=== PATIENT | female | born 1940 | race Caucasian/White ===

== ENCOUNTER 2022-12-31 19:51 | Inpatient (IN) | payer MEDICARE, OTHER, SELFPAY ==
[2022-12-31 21:26] VITALS: PULSE 85; RESP 16; O2SAT 92
[2022-12-31 22:00] VITALS: BP 102/51; PULSE 85; RESP 16; TEMP 37.6; O2SAT 92
--- NOTE | 2022-12-31 22:46 | HP.PCM_ITS ---
HPI - General General Date of Admission: 12/31/22 Date of Service: 01/01/23 Chief Complaint: Here for rehabilitation. HPI Narrative 12/28/2022 BENITEZ REAVES, is a 82 Female who presents with followin12/28/2022 Admit to [facility]. Diarrhea, fall. CT abdomen/pelvis showed right hip fracture, cecal mass, small bowel obstruction, ?Liver metastasis. Abdominal ultrasound showed liver metastasis x 3. 12/29/2022 CT chest negative for metastasis. Orthopedics performed right hip hemiarthroplasty, weight bearing as tolerated, Lovenox DT prophylaxis. GI recommended liver biopsy. 12/30/2022 Liver biopsy done. 12/31/2022 Tolerating diet, passing evan. Needs Gastroenterology, Oncology, General Surgery follow up. 12/31/2022 Admit to TCU with debility, here for rehabilitation, strengthening, prior to discharge home alone. [facility] Medical History (Updated 12/31/22 @ 23:[address] Jesse Mcclellan MD) Cecum mass Closed right hip fracture COPD (chronic obstructive pulmonary disease) Debility Depression GERD (gastroesophageal reflux disease) History of extrapyramidal symptoms Hyperlipidemia Iron deficiency anemia Metastasis to liver Schizophrenia Shoulder pain with history of repair of rotator cuff Small bowel obstruction Home Medications Fleet Enema 133 ml OTHER DAILY PRN Constipation 12/31/22 [History Last Taken Unknown] Percocet 1 tablet PO/SL Q4H PRN PRN Pain 12/31/22 [History Last Taken Unknown] Senna Plus 2 tablet PO/SL QHS Constipation 12/31/22 [History Last Taken Unknown] acetaminophen 2 tablet PO/SL 3XD PRN Pain 12/31/22 [History Last Taken 12/31/22 11:00] albuterol 1 puff PO/SL Q4H PRN PRN Shortness Of Breath 12/31/22 [History Last Taken Unknown] atorvastatin 40 mg tablet 40 mg PO QHS Cholesterol 12/31/22 [History Last Taken Unknown] benztropine 1 tablet PO/SL DAILY Check with primary doctor 12/31/22 [History L ast Taken Unknown] bisacodyl 1 supp OTHER DAILY PRN Constipation 12/31/22 [History Last Taken Unknown] budesonide-formoterol 2 puff PO/SL BID Check with primary doctor 12/31/22 [History Last Taken Unknown] calcium carbonate 1 tablet PO/SL BIDCM Check with primary doctor 12/31/22 [History Last Taken Unknown] cholecalciferol (vitamin D3) 2,000 iu PO/SL DAILY Supplement 12/31/22 [History Last Taken Unknown] denosumab 1 ml OTHER QMONTH Check with primary doctor 12/31/22 [History Last Taken Unknown] enoxaparin 0.4 ml OTHER DAILY Anticoagulant 12/31/22 [History Last Taken Unknown] famotidine 20 mg tablet 20 mg PO DAILY Check with primary doctor 12/31/22 [History Last Taken Unknown] ferrous sulfate 1 tablet PO/SL QMWF Supplement 12/31/22 [History Last Taken Unknown] metoprolol succinate 0.5 tablet PO/SL DAILY Blood pressure 12/31/22 [History Last Taken Unknown] polyethylene glycol 3350 1 packet PO/SL DAILY Constipation 12/31/22 [History Last Taken Unknown] ziprasidone HCl 1 cap PO/SL BREAKFAST Check with primary doctor 12/31/22 [History Last Taken Unknown] ziprasidone HCl 1 cap PO/SL DINNER Check with primary doctor 12/31/22 [History Last Taken Unknown] Allergy/AdvReac Type Severity Reaction Status Date / Time Sulfa (Sulfonamide Allergy Other Verified 12/31/22 22:19 Antibiotics) [sulfa drugs] tetanus toxoid, adsorbed Allergy Other Verified 12/31/22 22:20 Family History (Updated 12/31/22 @ 22:[address] Jesse Mcclellan MD) Mother Breast cancer Diabetes Heart disease Sister Diabetes Uterine cancer Brother Bone cancer Prostate cancer Father Colon cancer Surgical History (Updated 12/31/22 @ 22:[address] Jesse Mcclellan MD) History of bilateral breast reduction surgery History of breast biopsy History of cholecystectomy Social History (Updated 12/31/22 @ 22:[address] Jesse Mcclellan MD) household members: none current occupational status: retired Smoking Status: Never smoker alcohol intake: never substance use type: does not use ROS Constitutional Constitutional: Denies chills, fever(s) or weight gain ENT HEENT: Denies headache(s), nasal congestion or nasal discharge Cardiovascular Cardiovascular: Denies chest pain or palpitations Respiratory/Chest Respiratory/Chest: Denies cough, excessive phlegm production or shortness of breath with exertion Gastrointestinal Gastrointestinal: Denies abdominal pain, nausea or vomiting Genitourinary Genitourinary: Denies dysuria Musculoskeletal Musculoskeletal: Denies joint pain or joint swelling Integumentary Integumentary: Denies rash or wounds Neurologic Neurologic: Denies focal weakness, numbness or tingling Psychiatric Psychiatric: Denies anxiety, auditory hallucinations, depression, homicidal ideation or suicidal ideation Physical Exam Const alert General Appearance: cooperative HEENT normocephalic Eyes PERRL and EOMs intact bilaterally Neck supple, no JVD and no carotid bruits Resp normal respiratory effort, normal air movement and clear to auscultation bilaterally Cardio regular rate and regular rhythm GI normal to inspection, nondistended, normoactive bowel sounds, non-tender and non-distended Extremity normal capillary refill General Extremity: Negative for edema Skin no rashes or lesions noted General Skin Exam: no breakdown Psych affect normal Appearance: appropriate Results Lab / Micro Data Result Diagrams: 01/01/23 05:16 01/01/23 05:16 Assessment & Plan Assessment/Plan (1) Debility: (2) Closed right hip fracture: (3) Cecum mass: (4) Small bowel obstruction: (5) Metastasis to liver: (6) Schizophrenia: (7) Hyperlipidemia: (8) History of extrapyramidal symptoms: (9) GERD (gastroesophageal reflux disease): (10) Depression: (11) Iron deficiency anemia: (12) COPD (chronic obstructive pulmonary disease): PLAN: Plan 82 year old female with below past medical history hospitalized for right hip fracture, underwent right hip hemiarthroplasty 12/29/2022, complicated by cecal mass, liver mets, small bowel obstruction, admitted to TCU with debility, here for rehabilitation, strengthening, prior to discharge home alone. * Debility - PT/OT. * Pain - Tylenol 1000mg q8, Tramadol 50mg q6h prn pain (1-5), Oxycodone 5mg q4h prn pain (6-10). * Bowel - Miralax 17gm daily, senna/colace 2 tablets bid, Dulcolax 10mg pr x 1 prn, MOM 30ml po x 1 prn. * Adult immunization - Admnister pneumonia vaccine, covid19 vaccine, flu vaccine as appropriate. * DVT prophylaxis - Lovenox 40mg sc daily. * COPD - Fluticasone/Salmeterol 1 puff bid, Albuterol 1 puff q4h prn. * Hyperlipidemia - Atorvastatin 40mg qhs. * Extrapyramidal symptoms - Benztropine 1mg daily. * GERD - Famotidine 20mg daily, TUMS 500mg bidcm. * Iron deficiency anemia - Ferrous sulfate 325mg MWF, Hemoglobin 7.4, type and cross 2 units PRBC, Lasix 20mg iv between units H&H post transfusion. * Hypertension - Metoprolol succinate 12.5mg daily. * Vitamin D deficiency - D3 50mcg daily. * Paranoid schizophrenia - Geodon 40mg am, 80mg pm. * Hypokalemia - K 3.4, replace, monitorl
[2023-01-01 00:25] VITALS: BMI 20.2
[2023-01-01 04:17] VITALS: BP 119/54; PULSE 80
[2023-01-01] MEDS: Metoprolol(XL)Succ 25 MG Tablet 12.5 MG PO (04:17)
[2023-01-01] MEDS: Benztropine 2 MG Tablet PO (04:17)
[2023-01-01] MEDS: Senna/Docusate Sodium 1 Tablet 2 TABLET PO ×2 (04:17→18:39)
[2023-01-01] MEDS: Famotidine 20 MG Tablet PO (04:17)
[2023-01-01] MEDS: Cholecalciferol (VIT D3) 25 MCG TABLET (1,000 UNITS) 50 MCG PO (04:17)
[2023-01-01] MEDS: Fluticasone/Salmeterol 232-14 Inhaler 1 PUFF INHALATION ×2 (04:18→18:41)
[2023-01-01] MEDS: Acetaminophen 500 MG Tablet 1000 MG PO ×3 (04:19→20:26)
[2023-01-01] MEDS: Polyethylene Glycol 3350 17 GM PACKET PO (04:20)
[2023-01-01 05:54] LABS: Absolute Lymphocyte Count 1.87 X10^3/uL (0.83-4.51); Absolute Neutrophil Count 5.6 X10^3/uL (2.0-7.7); Basophil# 0.05 X10^3/uL; Basophil% 0.6 % (0-1); Eosinophil# 0.05 X10^3/uL; Eosinophils% 0.6 % (0-5); Hematocrit 24.3 % (37-47); Hemoglobin 7.4 g/dL (12.0-15.0); Lymphocyte # 1.87 X10^3/ul (0.83-4.51); Lymphocyte % 21.5 % (19-41); Mean Corp Hgb Conc 30.5 g/dL (32-36); Mean Corpuscular Hgb 26.9 pg (27.0-32.0); Mean Corpuscular Volume 88.4 fL (81-99); Mean Platelet Vol. 9.3 fl (6.2-12.0); Monocyte# 1.03 X10^3/uL; Monocyte% 11.8 % (0-10); NRBC Flagged by Analyzer 0 % (0-5); Neutrophil # 5.62 X10^3/uL (2.7-7.7); Neutrophil % 64.6 % (47-70); Platelet Count 238 K/mm3 (150-450); RBC Distribution Width CV 19.1 % (11.6-14.6); RBC Distribution Width SD 61.2 fl (35.1-43.9); Red Blood Count 2.75 M/mm3 (4.2-5.4); White Blood Count 8.7 K/mm3 (4.4-11.0)
[2023-01-01 06:33] LABS: Anion Gap 6 (5-15); BUN 12 mg/dL (7-18); BUN/Creat Ratio 22.7 RATIO (10-20); Calcium,Total 8.8 mg/dL (8.5-10.1); Chloride 107 mmol/L (98-107); Creatinine, Serum 0.53 mg/dL (0.55-1.02); EST Glomerular Filtration Rate 118 mL/min (>60); Est Glom Filt Rate - Afr Amer 143 mL/min (>60); Glucose 98 mg/dL (74-106); Potassium 3.4 mmol/L (3.5-5.1); Sodium Level 141 mmol/L (136-145)
[2023-01-01] MEDS: Ziprasidone HCl 20 MG Capsule 40 MG PO (08:34)
[2023-01-01] MEDS: Calcium Carbonate 500 MG Tablet PO ×2 (08:34→18:40)
[2023-01-01] MEDS: Potassium Chloride Oral Tablet 20 MEQ PO (08:34)
[2023-01-01] MEDS: Magnesium Hydroxide 30 ML UDC PO (08:38)
--- NOTE | 2023-01-01 10:00 | NURSING ---
Aquatics Specialist Note; Activity Asset: Evie Rowe is independent in her choice of daily activities. She prefers to be called Breana. Breana will watch tv, read and look at the newspaper and magazines along with working on word puzzles. She has a sister that lives out of state and is coming in to visit. 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
--- NOTE | 2023-01-01 10:11 | NURSING ---
CALLED PT SISTER TO UPDATE HER ON PT. NO ANSWER,LEFT MESSAGE.
[2023-01-01] MEDS: Enoxaparin 40 MG/0.4 ML Syringe SC (10:15)
[2023-01-01] MEDS: Tuberculin,Purif.prot.deriv. 50 TU/ML Vial 0.1 ML ID (10:21)
[2023-01-01] MEDS: Ferrous Sulfate 325 MG Tablet PO (12:11)
--- NOTE | 2023-01-01 12:13 | NURSING ---
PT SIGNED CONSENT TO RECEIVE BLOOD. THIS NURSE DID TEACHING AND EXPLAINED REASON FOR BLOOD. PT STATED SHE UNDER STOOD.
[2023-01-01] MEDS: Bisacodyl 10 MG Suppository RC (13:14)
--- NOTE | 2023-01-01 13:19 | NURSING ---
Addendum entered by Faisal Arguello 01/01/23 20:21: POSITIVE RESULTS Original Note: MOM AND SUPPOSITORY GIVEN DUE TO PT UNKNOWN LAST BM AND ABDOMINAL DISTENDED.
--- NOTE | 2023-01-01 13:25 | CASEMGMT ---
Social Work Met with patient to complete initial assessment. Introduced self and role. Discussed code status and MOLST form. Pt confirms full code. MOLST placed in Dr folder. Pt agreed to ask sister to provide copies of advanced directives. Educated to Medicare benefit and $200/day copay as pt does not have secondary insurance listed. Day 21, beginning of copays, is 01/20. Pt's goal is to return home alone, however, pt lives in a tri-level and needs to be safe completing the flight of steps. Pt noted she does not want to go to a custodial. SW offered to assist with DC planning. Will continue to follow. KAYLEEN WhiteW
--- NOTE | 2023-01-01 14:24 | PCM.PN.DRR ---
TCU RX Drug Regimen Review Subjective: TCU Admission. 82 YOF who was hospitalized for right hip fracture and underwent right hip hemiarthroplasty 12/29/2022, complicated by cecal mass, liver mets, and small bowel obstruction. Admitted to TCU 12/31/22 with debility for rehab, and strengthening. Objective: Allergies Sulfa (Sulfonamide Antibiotics) [sulfa drugs] Allergy (Verified 12/31/22 22:19) Other tetanus toxoid, adsorbed Allergy (Verified 12/31/22 22:20) Other Current Medications Generic Name Dose Route Start Last Admin Trade Name Freq PRN Reason Stop Dose Admin Acetaminophen 1,000 mg 01/01/23 06:00 01/01/23 13:15 Acetaminophen 500 Mg Tablet PO 1,000 mg Q8 PHILIPPE Administration Albuterol Sulfate 1 puff 12/31/22 22:12 Albuterol Ih (6.7 Gm) 1 Puff Inhaler INHALATION Q4H PRN PRN Shortness Of Breath Atorvastatin Calcium 40 mg 01/01/23 22:00 Atorvastatin Calcium 40 Mg Tablet PO QHS [facility] Benztropine Mesylate 2 mg 01/01/23 06:00 01/01/23 04:17 Benztropine 2 Mg Tablet PO 2 mg DAILY PHILIPPE Administration Bisacodyl 10 mg 12/31/22 22:12 01/01/23 13:14 Bisacodyl 10 Mg Suppository RC 10 mg DAILY PRN Administration Constipation Calcium Carbonate 500 mg 01/01/23 08:00 01/01/23 08:34 Calcium Carbonate 500 Mg Tablet PO 500 mg BIDCM PHILIPPE Administration Cholecalciferol 50 mcg 01/01/23 06:00 01/01/23 04:17 Cholecalciferol (Vit D3) 25 Mcg Tablet (1,000 Units) PO 50 mcg DAILY PHILIPPE Administration Enoxaparin Sodium 40 mg 01/01/23 10:00 01/01/23 10:15 Enoxaparin 40 Mg/0.4 Ml Syringe SC 40 mg DAILY@0600 [facility] Administration Famotidine 20 mg 01/01/23 06:00 01/01/23 04:17 Famotidine 20 Mg Tablet PO 20 mg DAILY PHILIPPE Administration Ferrous Sulfate 325 mg 01/01/23 12:00 01/01/23 12:11 Ferrous Sulfate 325 Mg Tablet PO 325 mg MoWeFr@1200 [facility] Administration Magnesium Hydroxide 30 ml 12/31/22 23:06 01/01/23 08:38 Magnesium Hydroxide 30 Ml Udc PO 30 ml X1 PRN Administration Constipation Metoprolol Succinate 12.5 mg 01/01/23 06:00 01/01/23 04:17 Metoprolol(Xl)Succ 25 Mg Tablet PO 12.5 mg DAILY PHILIPPE Administration Oxycodone HCl 5 mg 12/31/22 23:08 Oxycodone 5 Mg Tablet PO Q4H PRN PRN Pain Score 6-10 Polyethylene Glycol 17 gm 01/01/23 06:00 01/01/23 04:20 Polyethylene Glycol 3350 17 Gm Packet PO 17 gm DAILY PHILIPPE Administration Potassium Chloride 10 meq 01/02/23 08:00 Potassium Chloride Oral Tablet 10 Meq PO DAILY PHILIPPE Fluticasone/Salmeterol 1 puff 01/01/23 06:00 01/01/23 04:18 Fluticasone/Salmeterol 232-14 Inhaler INHALATION 1 puff BID PHILIPPE Administration Senna/Docusate Sodium 2 tablet 01/01/23 06:00 01/01/23 04:17 Senna/Docusate Sodium 1 Tablet PO 2 tablet BID [facility] Administration Tramadol HCl 50 mg 12/31/22 23:06 Tramadol 50 Mg Tablet PO Q6H PRN PRN Pain Score 1-5 Tuberculin PPD 0.1 ml 01/08/23 10:00 Tuberculin,Purif.Prot.Deriv. 50 Tu/Ml Vial ID 01/08/23 10:01 X1 ONE Ziprasidone 40 mg 01/01/23 08:00 01/01/23 08:34 Ziprasidone Hcl 20 Mg Capsule PO 40 mg BREAKFAST PHILIPPE Administration Ziprasidone 80 mg 01/01/23 17:00 Ziprasidone Hcl 20 Mg Capsule PO DINNER [facility] Problem List (Last Updated 12/31/22 @ 23:[address] Jesse Mcclellan MD) COPD (chronic obstructive pulmonary disease) (Chronic) Iron deficiency anemia (Acute) Depression (Acute) GERD (gastroesophageal reflux disease) (Acute) History of extrapyramidal symptoms (Acute) Hyperlipidemia (Acute) Schizophrenia (Acute) Metastasis to liver (Acute) Small bowel obstruction (Acute) Cecum mass (Acute) Closed right hip fracture (Acute) Debility (Acute) Vital Signs Temp Pulse Resp BP Pulse Ox O2 Del Method 99.6 F H 80 16 119/54 L 92 Room Air 12/31/22 22:00 01/01/23 04:17 12/31/22 22:00 01/01/23 04:17 12/31/22 22:00 12/31/22 22:00 Oxygen Delivery Method Room Air Weight: 53.524 kg Body Mass Index (BMI) 20.2 Sodium 141 mmol/L (136-145) 01/01/23 05:16 Potassium 3.4 mmol/L (3.5-5.1) L 01/01/23 05:16 Chloride 107 mmol/L (98-107) 01/01/23 05:16 Carbon Dioxide 28.0 mmol/L (21.0-32.0) 01/01/23 05:16 Anion Gap 6 (5-15) 01/01/23 05:16 BUN 12 mg/dL (7-18) 01/01/23 05:16 Creatinine 0.53 mg/dL (0.55-1.02) L 01/01/23 05:16 Est GFR (MDRD) Af Amer 143 mL/min (>60) 01/01/23 05:16 Est GFR (MDRD) Non-Af 118 mL/min (>60) 01/01/23 05:16 BUN/Creatinine Ratio 22.7 RATIO (10-20) H 01/01/23 05:16 Glucose 98 mg/dL (74-106) 01/01/23 05:16 Assessment/Plan: 1. Pain: acetaminophen 1000mg PO Q8, tramadol 50mg PO Q6H PRN pain (1-5) and oxycodone 5mg PO Q4H PRN pain (6-10). Monitor pain levels, constipation, any PRN medication use. To date, pt has not used prn medications. 2. Bowel: Miralax 17gm PO daily, senna/colace 2 tablets PO bid, Dulcolax 10mg RC x 1 PRN constipation, MOM 30ml PO x 1 PRN constipation. Monitor increased or decreased constipation or diarrhea, prn medication use To date, pt has not used prn medication and does not have any documented I/O 3. COPD: fluticasone/salmeterol 1 puff inhalation bid, Albuterol 1 puff inhalation Q4H PRN SOB. Monitor inhaler technique, thrush, wheezing, sob, prn medication use/need. To date, pt has not used PRN medication. Please rinse mouth with water and spit following administration of AirDuo to prevent thrush. 4. Hyperlipidemia: atorvastatin 40mg PO QHS. Please consider order a lipid panel and LFTs as they are not on file. Thanks. Please continue to monitor for muscle aches. 5. GERD: famotidine 20mg PO daily, Tums 500mg PO BID. Monitor acid reflux, stomach upset, nausea and calcium (last 8.8mg/dL). 6. Hypertension: metoprolol succinate 12.5mg PO daily. Monitor BP (last 119/54), HR (last 80), dizziness, orthostasis. 7. Iron deficiency anemia/hypokalemia/vitamin D deficiency: ferrous sulfate 325mg PO MWF, cholecalciferol 50mcg PO daily, Potassium Chloride 10mEq PO daily. Please consider ordering a vitamin D level as there is no level in the chart. Thanks. Please continue to monitor for constipation, dark stools and potassium (last 3.4mmol/L). 8. DVT prophylaxis: enoxaparin 40mg SC daily. Monitor bleeding, bruising, fall risk, platelets (last 238,000), renal function, and hemoglobin (last 7.4g/dL). 9. Extrapyramidal symptoms: benztropine 2mg PO daily. Monitor for any EPS, drowsiness, dizziness, dementia/delirium (BEERs medication), anticholinergic side effects (BEERs medication). Assessment/Plan for indications treated with psychotropic medications: 1. Paranoid schizophrenia: ziprasidone 40mg PO am, 80mg PO pm. Monitor: EPS (on benztropine), DRESS, weight gain, dementia/delirium (BEERs medication), falls/fractures (BEERs medication), sodium (last 141mmol/L). Please consider GDR by 06/2023 if clinically appropriate. Thanks. Medical chart and medication regimen reviewed. The following medication irregularities or issues were identified: *1. Atorvastatin 40mg PO QHS. Please consider order a lipid panel and LFTs as they are not on file. Thanks. *2. Please consider ordering a vitamin D level as there is no level in the chart. Thanks. Please continue to monitor for constipation, dark stools and potassium (last 3.4mmol/L). *3. Ziprasidone 40mg PO am, 80mg PO pm. Please consider GDR by 06/2023 if clinically appropriate. Thanks. Date of Note:: 01/01/23
[2023-01-01 16:00] VITALS: BP 106/44; PULSE 82; RESP 14; TEMP 37.3; O2SAT 96
--- NOTE | 2023-01-01 17:13 | NURSING ---
Addendum entered by Faisal Arguello 01/01/23 19:38: PT WILL GET A MIDLINE Addendum entered by Faisal Arguello 01/01/23 18:21: PT COMING BACK TO FLOOR AT 1830 DUE TO STAFF NOT BEING ABLE TO START IV ON PT. CALLED,N.O. RN CALLED FOR TRAINING ASSOCIATE FOR A PICC LINE. Original Note: PT TRANSFERRED TO PCU BY WHEEL CHAIR FOR 2 UNITS OF BLOOD DUE TO LOW HGB AT 1535.
[2023-01-01] MEDS: Ziprasidone HCl 20 MG Capsule 80 MG PO (18:40)
[2023-01-01 19:30] VITALS: O2SAT 94
[2023-01-01] MEDS: Atorvastatin Calcium 40 MG Tablet PO (20:27)
[2023-01-02] MEDS: Cholecalciferol (VIT D3) 25 MCG TABLET (1,000 UNITS) 50 MCG PO (05:44)
[2023-01-02] MEDS: Enoxaparin 40 MG/0.4 ML Syringe SC (05:44)
[2023-01-02] MEDS: Fluticasone/Salmeterol 232-14 Inhaler 1 PUFF INHALATION ×2 (05:44→20:30)
[2023-01-02] MEDS: Acetaminophen 500 MG Tablet 1000 MG PO ×2 (05:44→20:32)
[2023-01-02 05:45] VITALS: BP 128/73; PULSE 87
[2023-01-02] MEDS: Famotidine 20 MG Tablet PO (05:45)
[2023-01-02] MEDS: Senna/Docusate Sodium 1 Tablet 2 TABLET PO ×2 (05:45→20:31)
[2023-01-02] MEDS: Benztropine 2 MG Tablet PO (05:45)
[2023-01-02] MEDS: Metoprolol(XL)Succ 25 MG Tablet 12.5 MG PO (05:45)
[2023-01-02] MEDS: Polyethylene Glycol 3350 17 GM PACKET PO (05:50)
[2023-01-02] MEDS: Ziprasidone HCl 20 MG Capsule 40 MG PO (08:20)
[2023-01-02] MEDS: Calcium Carbonate 500 MG Tablet PO ×2 (08:21→20:32)
[2023-01-02] MEDS: Potassium Chloride Oral Tablet 10 MEQ PO (12:34)
--- NOTE | 2023-01-02 20:25 | NURSING ---
Patient returned to floor by pcu SCALEMAN. Patient positioned comfortably in bed. no signs of discomfort, patient expressed gratitude for comfort items
[2023-01-02] MEDS: Atorvastatin Calcium 40 MG Tablet PO (20:33)
[2023-01-02] MEDS: Ziprasidone HCl 20 MG Capsule 80 MG PO (20:33)
[2023-01-02 21:24] VITALS: BP 137/85; PULSE 75; RESP 18; TEMP 36.9; O2SAT 94
[2023-01-03 05:23] VITALS: BP 131/80; PULSE 85
[2023-01-03] MEDS: Enoxaparin 40 MG/0.4 ML Syringe SC (05:23)
[2023-01-03] MEDS: Acetaminophen 500 MG Tablet 1000 MG PO ×2 (05:23→13:27)
[2023-01-03] MEDS: Metoprolol(XL)Succ 25 MG Tablet 12.5 MG PO (05:23)
[2023-01-03] MEDS: Benztropine 2 MG Tablet PO (05:23)
[2023-01-03] MEDS: Famotidine 20 MG Tablet PO (05:24)
[2023-01-03] MEDS: Polyethylene Glycol 3350 17 GM PACKET PO (05:24)
[2023-01-03] MEDS: Cholecalciferol (VIT D3) 25 MCG TABLET (1,000 UNITS) 50 MCG PO (05:24)
[2023-01-03] MEDS: Senna/Docusate Sodium 1 Tablet 2 TABLET PO (05:24)
[2023-01-03 06:30] LABS: Anion Gap 5 (5-15); BUN 14 mg/dL (7-18); Calcium,Total 8.7 mg/dL (8.5-10.1); Chloride 106 mmol/L (98-107); Creatinine, Serum 0.48 mg/dL (0.55-1.02); EST Glomerular Filtration Rate 131 mL/min (>60); Est Glom Filt Rate - Afr Amer 159 mL/min (>60); Estimated Creatinine Clearance 37.28 ml/min; Glucose 105 mg/dL (74-106); Potassium 3.8 mmol/L (3.5-5.1); Sodium Level 139 mmol/L (136-145)
[2023-01-03] MEDS: Fluticasone/Salmeterol 232-14 Inhaler 1 PUFF INHALATION ×2 (06:41→17:10)
[2023-01-03] MEDS: Potassium Chloride Oral Tablet 10 MEQ PO (08:03)
[2023-01-03] MEDS: Calcium Carbonate 500 MG Tablet PO ×2 (08:03→17:11)
[2023-01-03] MEDS: Ziprasidone HCl 20 MG Capsule 40 MG PO (08:03)
[2023-01-03 14:08] VITALS: BP 122/84; PULSE 91; RESP 16; TEMP 35.4; O2SAT 94
[2023-01-03 15:42] LABS: Hematocrit 34.2 % (37-47); Hemoglobin 10.8 g/dL (12.0-15.0)
--- NOTE | 2023-01-03 15:47 | NURSING ---
Pt with 2 episodes nausea. d/c tylenol as pt blames for nausea. verbal order from Dr Mcclellan for prn zofran but dangerous interaction with scarlett
[2023-01-03] MEDS: Ziprasidone HCl 20 MG Capsule 80 MG PO (17:09)
[2023-01-03] MEDS: Atorvastatin Calcium 40 MG Tablet PO (19:51)
[2023-01-03 20:05] VITALS: PULSE 92; RESP 16; O2SAT 94
--- NOTE | 2023-01-03 20:17 | NURSING ---
Pt requested medication at this time to get in bed
[2023-01-04] MEDS: Fluticasone/Salmeterol 232-14 Inhaler 1 PUFF INHALATION ×2 (05:42→17:26)
[2023-01-04] MEDS: Senna/Docusate Sodium 1 Tablet 2 TABLET PO ×2 (05:43→17:26)
[2023-01-04] MEDS: Famotidine 20 MG Tablet PO (05:44)
[2023-01-04] MEDS: Enoxaparin 40 MG/0.4 ML Syringe SC (05:44)
[2023-01-04] MEDS: Benztropine 2 MG Tablet PO (05:44)
[2023-01-04] MEDS: Cholecalciferol (VIT D3) 25 MCG TABLET (1,000 UNITS) 50 MCG PO (05:44)
[2023-01-04 05:51] VITALS: BP 139/63; PULSE 106
[2023-01-04] MEDS: Metoprolol(XL)Succ 25 MG Tablet 12.5 MG PO (05:51)
[2023-01-04] MEDS: Calcium Carbonate 500 MG Tablet PO ×2 (08:00→17:27)
[2023-01-04] MEDS: Potassium Chloride Oral Tablet 10 MEQ PO (08:01)
[2023-01-04] MEDS: Ziprasidone HCl 20 MG Capsule 40 MG PO (09:27)
--- NOTE | 2023-01-04 10:42 | NURSING ---
LABS FAXED TO . APPOINTMENTS MADE WITH AND . MESSAGE LEFT WITH OFFICE TO SCHEDULE APPOINTMENT. RN AWARE
--- NOTE | 2023-01-04 10:44 | NURSING ---
CALLED DR. ARREDONDO OFFICE AND IMMUNIZATIONS UPDATED ON WORK LIST.
[2023-01-04] MEDS: Ferrous Sulfate 325 MG Tablet PO (11:34)
[2023-01-04] MEDS: proMETHazine 25 MG Tablet PO (12:48)
--- NOTE | 2023-01-04 12:50 | NURSING ---
Call gamez ringing but when answered patient didn't say anything. Went in room to check on her and she had thrown up about 350cc fluid. Offered kiah rose and nausea medicine, she said she'd take both. Kiah rose provided and phenergan given.
[2023-01-04 13:05] VITALS: PULSE 107; RESP 16; O2SAT 92
[2023-01-04] MEDS: 0.9% Saline Lock 10 ML Syringe IV (13:07)
--- NOTE | 2023-01-04 14:18 | NURSING ---
Offered covid vaccine, patient wasn't sure if she'd had it or not and asked that RN reach out to Lydia. Called Lydia, she reports she thinks patient is up to date but she will bring her vaccine card in when she can.
[2023-01-04 14:20] VITALS: BP 161/94; PULSE 110; RESP 16; TEMP 36.5; O2SAT 95
--- NOTE | 2023-01-04 16:41 | CHAPLAIN ---
Type of Pastoral Visit _x__ Initial Visit ___ Follow-up Visit ___ On-call Visit ___ General Patient Visit ___ Spiritual Assessment ___ Family Conference ___ Bereavement ___ Rapid Response ___ Code Blue ___ Other (describe below) Pastoral Care Referral From _x__ Patient ___ Family ___ Nurse ___ Physician ___ Sleever ___ Buckle Coverer ___ Other (describe below) Sacrament/Intervention _x__ Active listening ___ Anointing ___ Pentecostal ___ Bereavement ___ Communion _x__ Ivy exploration ___ _x__ Life review _x__ Prayer ___ Reconciliation ___ Sacrament of Sick __x_ Supportive presence ___ Wedding ___ Other (describe below) Pastoral Comments patient is sitting in chair, pleasant to speak with, and welcoming; pt gives some life review of childhood and of her spouse; pt welcomes presence and prayer; pt requests that God ace her a long good life and to see Him when He is ready; pt has limited support by family
[2023-01-04] MEDS: Ziprasidone HCl 20 MG Capsule 80 MG PO (17:27)
[2023-01-04 19:00] VITALS: BP 160/66; PULSE 99
[2023-01-04] MEDS: Atorvastatin Calcium 40 MG Tablet PO (19:59)
[2023-01-05] MEDS: Fluticasone/Salmeterol 232-14 Inhaler 1 PUFF INHALATION ×2 (06:16→17:55)
[2023-01-05] MEDS: Enoxaparin 40 MG/0.4 ML Syringe SC (06:17)
[2023-01-05] MEDS: Senna/Docusate Sodium 1 Tablet 2 TABLET PO ×2 (06:17→17:55)
[2023-01-05] MEDS: Famotidine 20 MG Tablet PO (06:18)
[2023-01-05] MEDS: Benztropine 2 MG Tablet PO (06:18)
[2023-01-05] MEDS: Cholecalciferol (VIT D3) 25 MCG TABLET (1,000 UNITS) 50 MCG PO (06:18)
[2023-01-05 06:19] VITALS: BP 154/83; PULSE 87
[2023-01-05] MEDS: Metoprolol(XL)Succ 25 MG Tablet 12.5 MG PO (06:19)
[2023-01-05] MEDS: Ziprasidone HCl 20 MG Capsule 40 MG PO (08:24)
[2023-01-05] MEDS: Potassium Chloride Oral Tablet 10 MEQ PO (08:24)
[2023-01-05] MEDS: Calcium Carbonate 500 MG Tablet PO ×2 (08:24→17:55)
--- NOTE | 2023-01-05 10:40 | CASEMGMT ---
Social Work BIMS (06/09) and PHQ-9 () completed for MDS assessment. SW attempted to explore positive responses, however, pt has cognitive impairment, poor carryover and comprehension with questions. Pt did express feeling a loss of independence r/t reason for admission. SW left written communication for Dr for possible interventions. SW to continue to monitor. Dari Lucero, CORE DROPPER SHIELD CLEANER
[2023-01-05 14:54] VITALS: BMI 20.1
[2023-01-05 14:57] VITALS: BP 152/79; PULSE 88; RESP 14; TEMP 37.2; O2SAT 95
[2023-01-05] MEDS: traMADol 50 MG Tablet PO (16:10)
[2023-01-05] MEDS: Ziprasidone HCl 20 MG Capsule 80 MG PO (17:55)
[2023-01-05] MEDS: Atorvastatin Calcium 40 MG Tablet PO (21:29)
[2023-01-05 21:34] VITALS: PULSE 86
[2023-01-06] MEDS: Benztropine 2 MG Tablet PO (06:45)
[2023-01-06] MEDS: Enoxaparin 40 MG/0.4 ML Syringe SC (06:45)
[2023-01-06] MEDS: Famotidine 20 MG Tablet PO (06:46)
[2023-01-06] MEDS: Fluticasone/Salmeterol 232-14 Inhaler 1 PUFF INHALATION ×2 (06:47→17:25)
[2023-01-06] MEDS: Senna/Docusate Sodium 1 Tablet 2 TABLET PO ×2 (06:47→17:24)
[2023-01-06] MEDS: Cholecalciferol (VIT D3) 25 MCG TABLET (1,000 UNITS) 50 MCG PO (06:47)
[2023-01-06 06:52] VITALS: BP 138/70; PULSE 82
[2023-01-06] MEDS: Metoprolol(XL)Succ 25 MG Tablet 12.5 MG PO (06:52)
[2023-01-06] MEDS: Potassium Chloride Oral Tablet 10 MEQ PO (08:30)
[2023-01-06] MEDS: Calcium Carbonate 500 MG Tablet PO ×2 (08:30→17:24)
[2023-01-06] MEDS: Ziprasidone HCl 20 MG Capsule 40 MG PO (08:31)
[2023-01-06] MEDS: 0.9% Saline Lock 10 ML Syringe IV (08:32)
[2023-01-06 10:22] LABS: Hematocrit 31.9 % (37-47); Hemoglobin 9.8 g/dL (12.0-15.0)
--- NOTE | 2023-01-06 11:17 | CASEMGMT ---
Social Work IDT met with patient and sister for care plan meeting. Discussed patient's progress in PT/OT/ST/SN. Educated to Medicare benefit and pt does not have secondary insurance for copay coverage. Educated to day 21 is 01/20, that begins $200/day copay. Inquired about paying for copays or goal DC by day 21. Sister stated pt has secondary insurance, [employer], and agreeable to provide copy of card to verify coverage. IDT recommending FWW at every level of home. SW offered Life Alert, MOW, CCN at DC. Pt already has Life Alert, denies MOW but interested in CCN. SW to coordinate needs at DC. SW to continue to follow for DC planning. Dari Lucero, KAYLEEN DEOILING MACHINE OPERATOR
[2023-01-06] MEDS: Ferrous Sulfate 325 MG Tablet PO (12:33)
[2023-01-06 15:33] VITALS: BP 143/69; PULSE 79; RESP 18; TEMP 37.5; O2SAT 94
[2023-01-06] MEDS: Ziprasidone HCl 20 MG Capsule 80 MG PO (17:23)
[2023-01-06] MEDS: Atorvastatin Calcium 40 MG Tablet PO (21:38)
[2023-01-06] MEDS: traMADol 50 MG Tablet PO (21:46)
[2023-01-06 22:14] VITALS: PULSE 88; RESP 18; O2SAT 94
[2023-01-07] MEDS: Cholecalciferol (VIT D3) 25 MCG TABLET (1,000 UNITS) 50 MCG PO (06:36)
[2023-01-07] MEDS: Fluticasone/Salmeterol 232-14 Inhaler 1 PUFF INHALATION ×2 (06:36→17:05)
[2023-01-07 06:37] VITALS: BP 139/60; PULSE 84
[2023-01-07] MEDS: Polyethylene Glycol 3350 17 GM PACKET PO (06:37)
[2023-01-07] MEDS: Enoxaparin 40 MG/0.4 ML Syringe SC (06:37)
[2023-01-07] MEDS: Metoprolol(XL)Succ 25 MG Tablet PO (06:37)
[2023-01-07] MEDS: Senna/Docusate Sodium 1 Tablet 2 TABLET PO (06:38)
[2023-01-07] MEDS: Benztropine 2 MG Tablet PO (06:39)
[2023-01-07] MEDS: Famotidine 20 MG Tablet PO (06:39)
[2023-01-07] MEDS: 0.9% Saline Lock 10 ML Syringe IV (06:44)
[2023-01-07] MEDS: Calcium Carbonate 500 MG Tablet PO ×2 (09:52→17:05)
[2023-01-07] MEDS: Potassium Chloride Oral Tablet 10 MEQ PO (09:52)
[2023-01-07] MEDS: Ziprasidone HCl 20 MG Capsule 40 MG PO (09:53)
[2023-01-07 11:07] VITALS: PULSE 86; RESP 16; O2SAT 99
[2023-01-07 15:24] VITALS: BP 142/81; PULSE 79; RESP 14; TEMP 37; O2SAT 95
--- NOTE | 2023-01-07 16:41 | NURSING ---
Right hip dressing removed per order. Incision site has intact bernardo, no active drainage noted. No redness at site, mild swelling to area. Gently cleansed around area and applied DSD over incision site.
[2023-01-07] MEDS: Ziprasidone HCl 20 MG Capsule 80 MG PO (17:05)
[2023-01-07] MEDS: Atorvastatin Calcium 40 MG Tablet PO (20:56)
[2023-01-08 05:43] LABS: Absolute Lymphocyte Count 2.09 X10^3/uL (0.83-4.51); Absolute Neutrophil Count 5.7 X10^3/uL (2.0-7.7); Basophil# 0.06 X10^3/uL; Basophil% 0.6 % (0-1); Eosinophil# 0.23 X10^3/uL; Eosinophils% 2.4 % (0-5); Hematocrit 35.1 % (37-47); Hemoglobin 10.9 g/dL (12.0-15.0); Lymphocyte # 2.09 X10^3/ul (0.83-4.51); Lymphocyte % 22.2 % (19-41); Mean Corp Hgb Conc 31.1 g/dL (32-36); Mean Corpuscular Volume 90.2 fL (81-99); Mean Platelet Vol. 8.6 fl (6.2-12.0); Monocyte# 1.15 X10^3/uL; Monocyte% 12.2 % (0-10); NRBC Flagged by Analyzer 0 % (0-5); Neutrophil # 5.68 X10^3/uL (2.7-7.7); Neutrophil % 60.6 % (47-70); Platelet Count 370 K/mm3 (150-450); RBC Distribution Width CV 18.1 % (11.6-14.6); RBC Distribution Width SD 59.3 fl (35.1-43.9); Red Blood Count 3.89 M/mm3 (4.2-5.4); White Blood Count 9.4 K/mm3 (4.4-11.0)
[2023-01-08 05:57] VITALS: BP 137/69; PULSE 80
[2023-01-08] MEDS: Metoprolol(XL)Succ 25 MG Tablet PO (05:57)
[2023-01-08] MEDS: Senna/Docusate Sodium 1 Tablet 2 TABLET PO ×2 (05:57→18:04)
[2023-01-08] MEDS: Fluticasone/Salmeterol 232-14 Inhaler 1 PUFF INHALATION ×2 (05:57→18:05)
[2023-01-08] MEDS: Cholecalciferol (VIT D3) 25 MCG TABLET (1,000 UNITS) 50 MCG PO (05:57)
[2023-01-08] MEDS: Benztropine 2 MG Tablet PO (05:58)
[2023-01-08] MEDS: Polyethylene Glycol 3350 17 GM PACKET PO (05:58)
[2023-01-08] MEDS: Famotidine 20 MG Tablet PO (05:58)
[2023-01-08 06:06] LABS: Anion Gap 5 (5-15); BUN 12 mg/dL (7-18); BUN/Creat Ratio 30.3 RATIO (10-20); Calcium,Total 8.8 mg/dL (8.5-10.1); Chloride 109 mmol/L (98-107); EST Glomerular Filtration Rate 165 mL/min (>60); Est Glom Filt Rate - Afr Amer 199 mL/min (>60); Estimated Creatinine Clearance 37.12 ml/min; Glucose 99 mg/dL (74-106); Potassium 4.2 mmol/L (3.5-5.1); Sodium Level 139 mmol/L (136-145)
[2023-01-08] MEDS: Ziprasidone HCl 20 MG Capsule 40 MG PO (07:13)
[2023-01-08] MEDS: Potassium Chloride Oral Tablet 10 MEQ PO (07:13)
[2023-01-08] MEDS: Calcium Carbonate 500 MG Tablet PO ×2 (07:14→18:04)
[2023-01-08] MEDS: Tuberculin,Purif.prot.deriv. 50 TU/ML Vial 0.1 ML ID (10:03)
[2023-01-08] MEDS: Ferrous Sulfate 325 MG Tablet PO (13:52)
[2023-01-08 15:46] VITALS: BP 171/95; PULSE 83; RESP 16; TEMP 36.8; O2SAT 96
--- NOTE | 2023-01-08 16:25 | NURSING ---
Transport cancelled, per [place] OT family to transport to appointments next week.
[2023-01-08] MEDS: Ziprasidone HCl 20 MG Capsule 80 MG PO (18:05)
[2023-01-08] MEDS: Atorvastatin Calcium 40 MG Tablet PO (20:01)
[2023-01-09] MEDS: proMETHazine 25 MG Tablet PO (01:50)
[2023-01-09] MEDS: Benztropine 2 MG Tablet PO (06:39)
[2023-01-09] MEDS: Polyethylene Glycol 3350 17 GM PACKET PO (06:39)
[2023-01-09] MEDS: Fluticasone/Salmeterol 232-14 Inhaler 1 PUFF INHALATION ×2 (06:39→18:15)
[2023-01-09] MEDS: Cholecalciferol (VIT D3) 25 MCG TABLET (1,000 UNITS) 50 MCG PO (06:39)
[2023-01-09] MEDS: Famotidine 20 MG Tablet PO (06:39)
[2023-01-09 06:41] VITALS: PULSE 82
[2023-01-09] MEDS: Metoprolol(XL)Succ 25 MG Tablet PO (06:41)
[2023-01-09] MEDS: Nystatin Powder 15gm Bottle 1 APPLIC TOPICAL (06:46)
[2023-01-09] MEDS: 0.9% Saline Lock 10 ML Syringe IV ×2 (08:31→11:25)
[2023-01-09] MEDS: Ziprasidone HCl 20 MG Capsule 40 MG PO (08:56)
[2023-01-09] MEDS: Potassium Chloride Oral Tablet 10 MEQ PO (08:56)
[2023-01-09] MEDS: Calcium Carbonate 500 MG Tablet PO ×2 (08:56→18:16)
[2023-01-09 12:29] LABS: Hematocrit 35.8 % (37-47); Hemoglobin 11.1 g/dL (12.0-15.0)
[2023-01-09 14:30] VITALS: PULSE 93; RESP 15; O2SAT 98
[2023-01-09 15:48] VITALS: BP 172/78; PULSE 86; RESP 20; TEMP 36.2; O2SAT 94
[2023-01-09] MEDS: Senna/Docusate Sodium 1 Tablet 2 TABLET PO (18:15)
[2023-01-09] MEDS: Ziprasidone HCl 20 MG Capsule 80 MG PO (18:16)
--- NOTE | 2023-01-09 19:44 | NURSING ---
Pt drowsy throughout this shift, VSS. Easy to arouse, did fair for therapy. Orientated and answered questions appropriately. Falls asleep very quickly. Is taking Geodon 40 mg at breakfast and 80mg at dinner. Notified oncoming nurse.
--- NOTE | 2023-01-09 19:52 | NURSING ---
Addendum entered by John March 01/10/23 16:48: Per Dr. mcclellan, No new orders. Original Note: Pt drowsy throughout this shift, VSS. Easy to arouse, did fair for therapy. Orientated and answered questions appropriately. Falls asleep very quickly. Is taking Geodon 40 mg at breakfast and 80mg at dinner. Notified oncoming nurse. On list for Dr. Mcclellan.
[2023-01-09] MEDS: Atorvastatin Calcium 40 MG Tablet PO (21:06)
[2023-01-09] MEDS: Losartan Potassium 100 MG Tablet PO (21:06)
[2023-01-09 21:14] VITALS: BP 161/77; PULSE 85
[2023-01-10] MEDS: Nystatin Powder 15gm Bottle 1 APPLIC TOPICAL ×2 (06:02→17:50)
[2023-01-10] MEDS: Fluticasone/Salmeterol 232-14 Inhaler 1 PUFF INHALATION ×2 (06:02→17:49)
[2023-01-10] MEDS: Famotidine 20 MG Tablet PO (06:03)
[2023-01-10] MEDS: Losartan Potassium 100 MG Tablet PO (06:03)
[2023-01-10] MEDS: Benztropine 2 MG Tablet PO (06:03)
[2023-01-10 06:04] VITALS: BP 140/65; PULSE 85
[2023-01-10] MEDS: Senna/Docusate Sodium 1 Tablet 2 TABLET PO ×2 (06:04→17:50)
[2023-01-10] MEDS: Metoprolol(XL)Succ 25 MG Tablet PO (06:04)
[2023-01-10] MEDS: Cholecalciferol (VIT D3) 25 MCG TABLET (1,000 UNITS) 50 MCG PO (06:04)
[2023-01-10] MEDS: 0.9% Saline Lock 10 ML Syringe IV ×3 (06:07→20:58)
[2023-01-10 06:12] VITALS: BP 140/65; PULSE 85
[2023-01-10] MEDS: Ziprasidone HCl 20 MG Capsule 40 MG PO (08:32)
[2023-01-10] MEDS: Potassium Chloride Oral Tablet 10 MEQ PO (08:32)
[2023-01-10] MEDS: Calcium Carbonate 500 MG Tablet PO ×2 (08:32→17:50)
[2023-01-10 14:00] VITALS: BP 122/50; PULSE 78; RESP 17; TEMP 35.5; O2SAT 94
[2023-01-10] MEDS: Ziprasidone HCl 20 MG Capsule 80 MG PO (17:50)
[2023-01-10 20:45] VITALS: PULSE 78; RESP 16; O2SAT 95
[2023-01-10] MEDS: Atorvastatin Calcium 40 MG Tablet PO (20:51)
[2023-01-11] MEDS: Losartan Potassium 100 MG Tablet PO (05:57)
[2023-01-11] MEDS: Fluticasone/Salmeterol 232-14 Inhaler 1 PUFF INHALATION ×2 (05:57→17:03)
[2023-01-11] MEDS: Benztropine 2 MG Tablet PO (05:57)
[2023-01-11 05:58] VITALS: BP 132/65; PULSE 87
[2023-01-11] MEDS: Metoprolol(XL)Succ 25 MG Tablet PO (05:58)
[2023-01-11] MEDS: Famotidine 20 MG Tablet PO (05:58)
[2023-01-11] MEDS: Cholecalciferol (VIT D3) 25 MCG TABLET (1,000 UNITS) 50 MCG PO (05:58)
[2023-01-11] MEDS: Nystatin Powder 15gm Bottle 1 APPLIC TOPICAL ×2 (05:58→17:04)
[2023-01-11 06:12] VITALS: BP 132/65; PULSE 87
[2023-01-11] MEDS: Potassium Chloride Oral Tablet 10 MEQ PO (08:30)
[2023-01-11] MEDS: Calcium Carbonate 500 MG Tablet PO (08:30)
[2023-01-11] MEDS: Ziprasidone HCl 20 MG Capsule 40 MG PO (08:30)
[2023-01-11] MEDS: Ferrous Sulfate 325 MG Tablet PO (11:33)
[2023-01-11 14:03] VITALS: BP 150/79; PULSE 81; RESP 18; TEMP 36.6; O2SAT 94
[2023-01-11] MEDS: Senna/Docusate Sodium 1 Tablet 2 TABLET PO (17:02)
[2023-01-11] MEDS: Ziprasidone HCl 20 MG Capsule 80 MG PO (17:03)
[2023-01-11] MEDS: Atorvastatin Calcium 40 MG Tablet PO (19:52)
[2023-01-12] MEDS: Cholecalciferol (VIT D3) 25 MCG TABLET (1,000 UNITS) 50 MCG PO (05:46)
[2023-01-12] MEDS: Senna/Docusate Sodium 1 Tablet 2 TABLET PO ×2 (05:46→17:13)
[2023-01-12 05:47] VITALS: BP 138/79; PULSE 90
[2023-01-12] MEDS: Benztropine 2 MG Tablet PO (05:47)
[2023-01-12] MEDS: Famotidine 20 MG Tablet PO (05:47)
[2023-01-12] MEDS: Losartan Potassium 100 MG Tablet PO (05:47)
[2023-01-12] MEDS: Metoprolol(XL)Succ 25 MG Tablet PO (05:47)
[2023-01-12] MEDS: Fluticasone/Salmeterol 232-14 Inhaler 1 PUFF INHALATION ×2 (05:48→17:13)
[2023-01-12] MEDS: Nystatin Powder 15gm Bottle 1 APPLIC TOPICAL ×2 (05:48→17:17)
[2023-01-12] MEDS: Calcium Carbonate 500 MG Tablet PO ×2 (07:48→17:13)
[2023-01-12] MEDS: Potassium Chloride Oral Tablet 10 MEQ PO (07:48)
[2023-01-12] MEDS: Ziprasidone HCl 20 MG Capsule 40 MG PO (07:48)
[2023-01-12 14:49] VITALS: BP 101/43; PULSE 89; RESP 14; TEMP 37.1; O2SAT 94
[2023-01-12] MEDS: Ziprasidone HCl 20 MG Capsule 80 MG PO (17:13)
[2023-01-12] MEDS: Atorvastatin Calcium 40 MG Tablet PO (20:14)
[2023-01-12 20:32] VITALS: O2SAT 97
[2023-01-13] MEDS: proMETHazine 25 MG Tablet PO (01:01)
--- NOTE | 2023-01-13 02:00 | NURSING ---
Pt had one episode of emesis around 12:30 am; moderate amount, appearing to be undigested food. Care provided, pt assisted into recliner, and PRN Phenergan administered. Pt states her stomach had been upset but that she felt better.
[2023-01-13] MEDS: Cholecalciferol (VIT D3) 25 MCG TABLET (1,000 UNITS) 50 MCG PO (06:22)
[2023-01-13 06:23] VITALS: BP 147/68; PULSE 87
[2023-01-13] MEDS: Benztropine 2 MG Tablet PO (06:23)
[2023-01-13] MEDS: Metoprolol(XL)Succ 25 MG Tablet PO (06:23)
[2023-01-13] MEDS: Famotidine 20 MG Tablet PO (06:23)
[2023-01-13] MEDS: Losartan Potassium 100 MG Tablet PO (06:23)
[2023-01-13] MEDS: Fluticasone/Salmeterol 232-14 Inhaler 1 PUFF INHALATION (06:24)
[2023-01-13] MEDS: Nystatin Powder 15gm Bottle 1 APPLIC TOPICAL (06:30)
--- NOTE | 2023-01-13 06:40 | MDS.RN ---
Information for the mds was obtained from review of the clinical record, interview of resident, staff, and direct observation of resident's care.
[2023-01-13] MEDS: Potassium Chloride Oral Tablet 10 MEQ PO (08:04)
[2023-01-13] MEDS: Calcium Carbonate 500 MG Tablet PO (08:04)
[2023-01-13] MEDS: Ziprasidone HCl 20 MG Capsule 40 MG PO (08:04)
[2023-01-13 08:41] LABS: Absolute Lymphocyte Count 1.15 X10^3/uL (0.83-4.51); Absolute Neutrophil Count 8.2 X10^3/uL (2.0-7.7); Basophil# 0.06 X10^3/uL; Basophil% 0.5 % (0-1); Eosinophil# 0.03 X10^3/uL; Eosinophils% 0.3 % (0-5); Hematocrit 37.3 % (37-47); Hemoglobin 11.6 g/dL (12.0-15.0); Lymphocyte # 1.15 X10^3/ul (0.83-4.51); Lymphocyte % 10.3 % (19-41); Mean Corp Hgb Conc 31.1 g/dL (32-36); Mean Corpuscular Hgb 27.7 pg (27.0-32.0); Mean Platelet Vol. 8.5 fl (6.2-12.0); Monocyte# 1.59 X10^3/uL; Monocyte% 14.3 % (0-10); NRBC Flagged by Analyzer 0 % (0-5); Neutrophil # 8.23 X10^3/uL (2.7-7.7); POSITIVE DIFFERENTIAL YES; Platelet Count 508 K/mm3 (150-450); RBC Distribution Width SD 58.6 fl (35.1-43.9); Red Blood Count 4.19 M/mm3 (4.2-5.4); White Blood Count 11.1 K/mm3 (4.4-11.0)
[2023-01-13 08:45] LABS: Differential Indicated SCAN CRITERIA MET
[2023-01-13 09:05] LABS: Differential Comment SCANNED
[2023-01-13 09:36] LABS: ALB/GLOB Ratio 0.6 RATIO (0.9-2.4); AST(SGOT) 27 U/L (15-37); Alanine Aminotransfer ALT/SGPT 26 U/L (13-56); Albumin, Serum 2.6 g/dL (3.2-5.0); Alkaline Phosphatase 148 U/L (45-117); Anion Gap 4 (5-15); BUN 38 mg/dL (7-18); BUN/Creat Ratio 41.6 RATIO (10-20); Calcium,Total 9.1 mg/dL (8.5-10.1); Chloride 104 mmol/L (98-107); Creatinine, Serum 0.91 mg/dL (0.55-1.02); EST Glomerular Filtration Rate 63 mL/min (>60); Est Glom Filt Rate - Afr Amer 76 mL/min (>60); Estimated Creatinine Clearance 40.72 ml/min; Globulin 4.5 g/dL (2.2-4.2); Glucose 128 mg/dL (74-106); Potassium 4.6 mmol/L (3.5-5.1); Protein, Total 7.1 g/dL (6.4-8.2); Sodium Level 135 mmol/L (136-145)
[2023-01-13] MEDS: 0.9% Saline Lock 10 ML Syringe IV (09:55)
--- NOTE | 2023-01-13 10:17 | NURSING ---
Spoke with Dr. Bo regarding general surgery consult. Discussed pt's medical history and imaging. Dr. Bo would like to be paged with results of CT scan.
[2023-01-13 10:36] VITALS: PULSE 68; RESP 16; O2SAT 97
[2023-01-13] MEDS: Ferrous Sulfate 325 MG Tablet PO (12:01)
--- NOTE | 2023-01-13 13:16 | NURSING ---
Dr. Moulton on unit, ordered for Pt to have NG tube placed and transferred to [facility]. On phone with Dr. Mcclellan and updated on situation, ordered to send to ER with orders to transfer to [facility]. Report called to ER nurse. ARTURO jones, sister accompanying.
--- NOTE | 2023-01-13 14:04 | PN_ITS ---
Progress Note I saw the patient reviewed her chart. It seems that she has establish care at [facility]. She has seen their oncologist, their GI doctor, their general surgeon. She had known cecal mass with metastasis and had her liver biopsy last week. She has an appointment on Wednesday with her oncologist to go over results. At this point her CT scan appears that she is obstructed and she may have an additional lesion in her transverse colon that is causing the actual obstruction. I recommend that she return to [facility] for continuation of care. Bj Briggs MD Pager: [facility] [address] [place] [address], [address] [place] [address] Office:
--- NOTE | 2023-01-13 18:46 | DS.PCM_ITS ---
Providers Date of Admission: 12/31/22 Primary Care Physician: Dr. Good Nj DO Consultations 01/13/23 08:09 Consult: General Surgery Routine Consulting Provider: Bj Briggs Reason for Consult: Hx cecal mass, liver mets. Rule out obstruction. EMERGENT Consult: No MD Notified: Yes Date Notified: 01/13/23 Time Notified: 10:10 Method of Notification: Verbal Reason For Visit: RIGHT HIP FRACTURE Diagnosis Discharge Diagnosis (1) Debility: Status: Acute Code(s): R53.81 - Other malaise (2) Closed right hip fracture: Status: Acute Code(s): S72.001A - Fracture of unspecified part of neck of right femur, initial encounter for closed fracture (3) Cecum mass: Status: Acute Code(s): K63.89 - Other specified diseases of intestine (4) Small bowel obstruction: Status: Acute Code(s): K56.609 - Unspecified intestinal obstruction, unspecified as to partial versus complete obstruction (5) Metastasis to liver: Status: Acute Code(s): C78.7 - Secondary malignant neoplasm of liver and intrahepatic bile duct (6) Schizophrenia: Status: Acute Code(s): F20.9 - Schizophrenia, unspecified (7) Hyperlipidemia: Status: Acute Code(s): E78.5 - Hyperlipidemia, unspecified (8) History of extrapyramidal symptoms: Status: Acute Code(s): Z87.898 - Personal history of other specified conditions (9) GERD (gastroesophageal reflux disease): Status: Acute Code(s): K21.9 - Gastro-esophageal reflux disease without esophagitis (10) Depression: Status: Acute Code(s): F32.A - Depression, unspecified (11) Iron deficiency anemia: Status: Acute Code(s): D50.9 - Iron deficiency anemia, unspecified (12) COPD (chronic obstructive pulmonary disease): Status: Chronic Code(s): J44.9 - Chronic obstructive pulmonary disease, unspecified Plan 82 year old female with below past medical history hospitalized for right hip fracture, underwent right hip hemiarthroplasty 12/29/2022, complicated by cecal mass, liver mets, small bowel obstruction, admitted to TCU with debility, here for rehabilitation, strengthening, prior to discharge home alone. * Debility - PT/OT. * Pain - Tylenol 1000mg q8, Tramadol 50mg q6h prn pain (1-5), Oxycodone 5mg q4h prn pain (6-10). * Bowel - Miralax 17gm daily, senna/colace 2 tablets bid, Dulcolax 10mg pr x 1 prn, MOM 30ml po x 1 prn. * Adult immunization - Admnister pneumonia vaccine, covid19 vaccine, flu vaccine as appropriate. * DVT prophylaxis - Lovenox 40mg sc daily. * COPD - Fluticasone/Salmeterol 1 puff bid, Albuterol 1 puff q4h prn. * Hyperlipidemia - Atorvastatin 40mg qhs. * Extrapyramidal symptoms - Benztropine 1mg daily. * GERD - Famotidine 20mg daily, TUMS 500mg bidcm. * Iron deficiency anemia - Ferrous sulfate 325mg MWF, Hemoglobin 7.4, type and cross 2 units PRBC, Lasix 20mg iv between units H&H post transfusion. * Hypertension - Metoprolol succinate 12.5mg daily. * Vitamin D deficiency - D3 50mcg daily. * Paranoid schizophrenia - Geodon 40mg am, 80mg pm. * Hypokalemia - K 3.4, replace, monitorl Medications at Discharge Home Medications Fleet Enema 133 ml OTHER DAILY PRN Constipation 12/31/22 Percocet 1 tablet PO/SL Q4H PRN PRN Pain 12/31/22 Senna Plus 2 tablet PO/SL QHS Constipation 12/31/22 acetaminophen 2 tablet PO/SL 3XD PRN Pain 12/31/22 albuterol 1 puff PO/SL Q4H PRN PRN Shortness Of Breath 12/31/22 atorvastatin 40 mg tablet 40 mg PO QHS Cholesterol 12/31/22 benztropine 1 tablet PO/SL DAILY Check with primary doctor 12/31/22 bisacodyl 1 supp OTHER DAILY PRN Constipation 12/31/22 budesonide-formoterol 2 puff PO/SL BID Check with primary doctor 12/31/22 calcium carbonate 1 tablet PO/SL BIDCM Check with primary doctor 12/31/22 cholecalciferol (vitamin D3) 2,000 iu PO/SL DAILY Supplement 12/31/22 denosumab 1 ml OTHER QMONTH Check with primary doctor 12/31/22 enoxaparin 0.4 ml OTHER DAILY Anticoagulant 12/31/22 famotidine 20 mg tablet 20 mg PO DAILY Check with primary doctor 12/31/22 ferrous sulfate 1 tablet PO/SL QMWF Supplement 12/31/22 metoprolol succinate 0.5 tablet PO/SL DAILY Blood pressure 12/31/22 polyethylene glycol 3350 1 packet PO/SL DAILY Constipation 12/31/22 ziprasidone HCl 1 cap PO/SL BREAKFAST Check with primary doctor 12/31/22 ziprasidone HCl 1 cap PO/SL DINNER Check with primary doctor 12/31/22 Hospital Course Operations - (Right hip hemiarthroplasty.) Procedures None Summary of Care Provided Minutes Spent on Discharge: 30 Hospital Course: 82 year old female with below past medical history hospitalized for right hip fracture, underwent right hip hemiarthroplasty 12/29/2022, complicated by cecal mass, liver mets, small bowel obstruction, admitted to TCU with debility, here for rehabilitation, strengthening, prior to discharge home alone. 01/13/2023 Resident developed abdominal pain, nausea, vomiting, diarrhea. CT abdomen/pelvis showed cecal mass, liver mets, small bowel obstruction. Discharge to [facility] ED 01/13/2023 for evaluation, transfer to [facility] for admission. Weight / BMI Weight Weight: 53.206 kg Body Mass Index (BMI) 20.0 ABG / Lab / Microbiology Data Result Diagrams: 01/13/23 08:34 01/13/23 08:34 Laboratory: Laboratory Results - last 24 hr 01/13/23 08:34: WBC 11.1 H, RBC 4.19 L, Hgb 11.6 L, Hct 37.3, MCV 89.0, MCH 27.7 , MCHC 31.1 L, RDW Std Deviation 58.6 H, RDW Coeff of Tobias 18.0 H, Plt Count 508 H, MPV 8.5, Immature Gran % (Auto) 0.600, Neut % (Auto) 74.0 H, Lymph % (Auto) 10.3 L, Mower % (Auto) 14.3 H, Eos % (Auto) 0.3, Baso % (Auto) 0.5, Absolute Neuts (auto) 8.2 H, Absolute Lymphs (auto) 1.15, Nucleated RBC % 0, Differential Comment SCANNED, Diff Path Review November21/23 08:34: Sodium 135 L, Potassium 4.6, Chloride 104, Carbon Dioxide 27.0, Anion Gap 4 L, BUN 38 H, Creatinine 0.91, Estim Creat Clear Calc 40.72, Est GFR (MDRD) Af Amer 76, Est GFR (MDRD) Non-Af 63, BUN/Creatinine Ratio 41.6 H, Glucose 128 H, Calcium 9.1, Total Bilirubin 0.80, AST 27, ALT 26, Alkaline Phosphatase 148 H, Total Protein 7.1, Albumin 2.6 L, Globulin 4.5 H, Albumin/Globulin Ratio 0.6 L Microbiology: Microbiology 01/04/23 08:53 Nasal Secretion SARS-CoV-2 Antigen (Rapid) - Final 01/02/23 06:20 Nasal Secretion SARS-CoV-2 Antigen (Rapid) - Final 01/01/23 04:30 Nasal Secretion SARS-CoV-2 Antigen (Rapid) - Final D/C Instructions Discharge Activity: Return to Normal Activity, May Shower and Use Walker Weight Bearing Status: Weight bearing as tolerated Call your doctor if you observe: Fever of 101 or Higher, Inability to urinate, Inability to have a bowel movement, Shortness of breath, Dizziness, Fainting spells, Swelling in the ankles, Chest pain and Uncontrolled pain Additional Instructions: Discharge to [facility] ED 01/13/2023 for evaluation, transfer to [facility] for admission. Please Follow Up With: Clem Funk Do Meaningful Use Info Meaningful Use Diagnoses (Choose all that apply): None applicable Discharge Plan Admission Admit Date/Time: 12/31/22 19:51 Primary Reason for Your Visit: Debility. Attending Provider: Jesse Mcclellan Chi Primary Care Provider: Good Nj Consulting Providers: Bj Briggs Instructions Additional Instructions / Restrictions: Discharge to [facility] ED 01/13/2023 for evaluation, transfer to [facility] for admission. Discharge Orders/Prescriptions Prescriptions: No Action atorvastatin 40 mg tablet 40 mg PO QHS famotidine 20 mg tablet 20 mg PO DAILY Fleet Enema 19 g enema 133 ml OTHER DAILY PRN (Reason: Constipation) Percocet 5 mg/325 mg tablet 1 tablet PO/SL Q4H PRN PRN (Reason: Pain) Senna Plus 50 mg/8.6 mg tablet 2 tablet PO/SL QHS acetaminophen 325 mg tablet 2 tablet PO/SL 3XD PRN (Reason: Pain) albuterol 90 mcg inhaler 1 puff PO/SL Q4H PRN PRN (Reason: Shortness Of Breath) benztropine 2 mg tablet 1 tablet PO/SL DAILY bisacodyl 10 mg suppository 1 supp OTHER DAILY PRN (Reason: Constipation) budesonide-formoterol 160 mcg inhaler 2 puff PO/SL BID calcium carbonate 600 mg tablet 1 tablet PO/SL BIDCM cholecalciferol (vitamin D3) 50 mcg tablet 2,000 iu PO/SL DAILY denosumab 60 mg pen injector 1 ml OTHER QMONTH Rx Instructions: Administer every 6 months. enoxaparin 40 mg auto-injector 0.4 ml OTHER DAILY ferrous sulfate 325 mg tablet 1 tablet PO/SL QMWF metoprolol succinate 25 mg tablet 0.5 tablet PO/SL DAILY polyethylene glycol 3350 17 g packet 1 packet PO/SL DAILY ziprasidone HCl 40 mg capsule 1 cap PO/SL BREAKFAST ziprasidone HCl 80 mg capsule 1 cap PO/SL DINNER Referrals / Follow Up: Good Nj DO [Primary Care Provider] - Disposition Disposition (needs filled in before D/C Order can be placed): Acute Care Hospital
[2023-01-14 13:41] LABS: Pathologist Review Reviewed
== END 2023-01-13 13:30 | disposition short-term general hospital (02) | DRG 560 ==
PROVIDERS: Admitting Provider Family Medicine Geriatric Medicine; PCP Student in an Organized Health Care Education/Training Program; Visit Provider Family Medicine Geriatric Medicine
DX: S72.001D Fracture of unspecified part of neck of right femur, subsequent encounter for closed fracture with routine healing (principal); C78.7 Secondary malignant neoplasm of liver and intrahepatic bile duct; K56.609 Unspecified intestinal obstruction, unspecified as to partial versus complete obstruction; F20.0 Paranoid schizophrenia; J44.9 Chronic obstructive pulmonary disease, unspecified; K21.9 Gastro-esophageal reflux disease without esophagitis; E87.6 Hypokalemia; D50.9 Iron deficiency anemia, unspecified; E78.5 Hyperlipidemia, unspecified; E55.9 Vitamin D deficiency, unspecified; W19.XXXD Unspecified fall, subsequent encounter; R19.09 Other intra-abdominal and pelvic swelling, mass and lump; Z79.899 Other long term (current) drug therapy; Z96.641 Presence of right artificial hip joint; F32.A Depression, unspecified
CPT/HCPCS: 36415; 80048; 80053; 85014; 85018; 85025; 86850; 86900; 86901; 86920; 86922; 87811; 92507; 92523; 97110; 97116; 97129; 97130; 97162; 97166; 97530; 97535; 97802; A4216

== ENCOUNTER 2023-01-01 16:03 | Outpatient (CLI) | payer MEDICARE, OTHER, SELFPAY | END 2023-01-01 18:25 | disposition home or self-care (01) | LOC: PCUOUT 16:05 → PCU 16:06 | PROVIDERS: Referring Provider Family Medicine Geriatric Medicine; Visit Provider Family Medicine Geriatric Medicine | DX: D64.89 Other specified anemias (principal) ==

== ENCOUNTER 2023-01-02 12:50 | Outpatient (CLI) | payer MEDICARE, OTHER, SELFPAY ==
[2023-01-02] VITALS (9 sets, daily range): BP systolic 108–141; BP diastolic 39–92; PULSE 62–93; RESP 16; TEMP 36.6–37.6; O2SAT 93–100
[2023-01-02] MEDS: 0.9% Saline Lock 10 ML Syringe IV (20:16)
== END 2023-01-02 20:30 | disposition home or self-care (01) ==
LOC: PCUOUT 12:59 → PCU 13:00
PROVIDERS: Referring Provider Family Medicine Geriatric Medicine; Visit Provider Family Medicine Geriatric Medicine
DX: S72.009A Fracture of unspecified part of neck of unspecified femur, initial encounter for closed fracture (principal)
CPT/HCPCS: 36430; 86850; 86900; 86901; 86920; 86922; J7040; P9016; A4216

== ENCOUNTER 2023-01-13 13:29 | Emergency (ER) | payer MEDICARE, OTHER, SELFPAY ==
[2023-01-13 13:31] VITALS: BP 114/49; PULSE 90; RESP 32; TEMP 37; O2SAT 94; BMI 21.7
--- NOTE | 2023-01-13 14:22 | EDS_ITS ---
HPI History of Present Illness Chief Complaint: Nausea/Vomiting Detail of Chief Complaint: Possible bowel obstruction Narrative Narrative: Patient transferred from the TCU. Patient unable to provide history and [facility]. Patient was admitted to [facility] in [place] December 28 through after a fall and developed a right hip fracture and was found to have a cecal mass resulting in a distal small bowel obstruction. Patient underwent right hip hemiarthroplasty on December 29. She was evaluated by surgery and oncology at [facility]. She had a liver biopsy performed. It was recommended the patient undergo outpatient colonoscopy prior to any consideration for bowel surgery. Patient reportedly developed nausea and vomiting but she cannot tell me when. I am told that a CT scan performed earlier today was entered under the wrong M number but did show a bowel obstruction. Surgery sent her to the emergency room requesting the patient be transferred back to [facility]. [facility] Medical History (Updated 01/13/23 @ 15:[address] Kelsie Malone MD) Abdominal mass Anemia Anxiety and depression Blurry vision, left eye Cecum mass Chest pain Closed right hip fracture Compression fracture of vertebra COPD (chronic obstructive pulmonary disease) Debility Depression Dizziness Dyslipidemia Dysphagia Eczema of hand Esophageal web Fatigue Gallbladder polyp GERD (gastroesophageal reflux disease) History of cancer of right breast History of extrapyramidal symptoms Hyperlipidemia Iron deficiency anemia Left rib fracture Mass of colon Mass of upper lobe of right lung Metastasis to liver Mild tricuspid regurgitation Mitral valve annular calcification Orthostatic hypotension Osteoporosis 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 Scarring of lung Schizophrenia Shoulder pain with history of repair of rotator cuff Small bowel obstruction SOB (shortness of breath) on exertion Tertiary contraction of esophagus Weakness Home Medications Fleet Enema 133 ml OTHER DAILY PRN Constipation 12/31/22 [History Last Taken Unknown] Percocet 1 tablet PO/SL Q4H PRN PRN Pain 12/31/22 [History Last Taken Unknown] Senna Plus 2 tablet PO/SL QHS Constipation 12/31/22 [History Last Taken Unknown] acetaminophen 2 tablet PO/SL 3XD PRN Pain 12/31/22 [History Last Taken 12/31/22 11:00] albuterol 1 puff PO/SL Q4H PRN PRN Shortness Of Breath 12/31/22 [History Last Taken Unknown] atorvastatin 40 mg tablet 40 mg PO QHS Cholesterol 12/31/22 [History Last Taken Unknown] benztropine 1 tablet PO/SL DAILY Check with primary doctor 12/31/22 [History Last Taken Unknown] bisacodyl 1 supp OTHER DAILY PRN Constipation 12/31/22 [History Last Taken Unknown] budesonide-formoterol 2 puff PO/SL BID Check with primary doctor 12/31/22 [History Last Taken Unknown] calcium carbonate 1 tablet PO/SL BIDCM Check with primary doctor 12/31/22 [History Last Taken Unknown] cholecalciferol (vitamin D3) 2,000 iu PO/SL DAILY Supplement 12/31/22 [History Last Taken Unknown] denosumab 1 ml OTHER QMONTH Check with primary doctor 12/31/22 [History Last Taken Unknown] enoxaparin 0.4 ml OTHER DAILY Anticoagulant 12/31/22 [History Last Taken Unknown] famotidine 20 mg tablet 20 mg PO DAILY Check with primary doctor 12/31/22 [History Last Taken Unknown] ferrous sulfate 1 tablet PO/SL QMWF Supplement 12/31/22 [History Last Taken Unknown] metoprolol succinate 0.5 tablet PO/SL DAILY Blood pressure 12/31/22 [History Last Taken Unknown] polyethylene glycol 3350 1 packet PO/SL DAILY Constipation 12/31/22 [History Last Taken Unknown] ziprasidone HCl 1 cap PO/SL BREAKFAST Check with primary doctor 12/31/22 [History Last Taken Unknown] ziprasidone HCl 1 cap PO/SL DINNER Check with primary doctor 12/31/22 [History Last Taken Unknown] Allergy/AdvReac Type Severity Reaction Status Date / Time Sulfa (Sulfonamide Allergy Other Verified 12/31/22 22:19 Antibiotics) [sulfa drugs] tetanus toxoid, adsorbed Allergy Other Verified 12/31/22 22:20 Family History Mother Breast cancer Diabetes Heart disease Sister Diabetes Uterine cancer Brother Bone cancer Prostate cancer Father Colon cancer Surgical History History of bilateral breast reduction surgery History of breast biopsy History of cholecystectomy Social History household members: none current occupational status: retired Smoking Status: Never smoker alcohol intake: never substance use type: does not use ROS ROS ED Review of Systems ROS Unobtainable: due to mental status EXAM Physical Exam Narrative Exam Narrative: Patient will open her eyes to voice and answer some questions. She thinks that she just hurt her hip 2 days ago and developed nausea and vomiting yesterday. She does not remember that she had surgery on her hip. Const Vital Signs: 01/13/23 13:31 Temperature 98.6 F Temperature Source Temporal Pulse Rate 90 Respiratory Rate 32 H Blood Pressure 114/49 L Blood Pressure Mean 70 Pulse Ox 94 Oxygen Delivery Method Room Air Positive well nourished and well developed General Appearance ED: well developed Eyes EOMs intact bilaterally Chest Wall inspection of chest normal and palpation of chest normal Resp clear to auscultation bilaterally Resp Narrative: Mild tachypnea Cardio regular rate and regular rhythm GI non-tender Auscultation: hypoactive bowel sounds Palpation: soft Neuro Neuro Narrative: Rest with eyes closed but will answer questions. Does appear confused, but unsure of her baseline mental status. MDM MDM MDM Narrative Medical decision making narrative: Labwork obtained to evaluate for leukocytosis, anemia, and electrolyte derangement. CT scan abdomen pelvis ordered as I do not see report of imaging. I was later notified by staff that the patient imaging studies were under a different account number in the computer and I was handed a copy of the CT scan performed earlier today. This reveals multiple lesions in the liver likely related to metastatic disease. There is a mass in the colon causing colonic obstruction and subsequent small bowel obstruction. There is a possible mass in hepatic flexure causing a partial large bowel obstruction. I was able to print out the patient's lab work from earlier this morning when she was in TCU. Her white count was 11.1 with 74% neutrophils. Platelet count elevated at 500 studies reveal a BUN of 38 and creatinine is 0.91. LFTs significant only for an alk phos of 148. When I went back to the room the patient's sister is now present in the room with her. Patient is now more alert and interactive. She states that she has been having nausea and vomiting intermittently for the last several weeks. She believes her last bowel movement was 2 or 3 days ago. She does complain of increased abdominal pain today. I did discuss with her and her sister plan to transfer her to [facility] where she may require surgery. She does wish to do this. [facility] was contacted for transfer. Lab Data Labs: Laboratory Results - last 24 hr 01/13/23 01/13/23 01/13/23 15:00 15:00 15:00 WBC 10.2 RBC 4.13 L Hgb 11.5 L Hct 36.3 L MCV 87.9 MCH 27.8 MCHC 31.7 L RDW Std Deviation 57.3 H RDW Coeff of Tobias 17.7 H Plt Count 460 H MPV 8.5 Immature Gran % (Auto) 0.400 Neut % (Auto) 73.1 H Lymph % (Auto) 10.9 L Moore % (Auto) 14.5 H Eos % (Auto) 0.4 Baso % (Auto) 0.7 Absolute Neuts (auto) 7.4 Absolute Lymphs (auto) 1.11 Nucleated RBC % 0 PT 14.0 INR 1.1 APTT 30.2 Sodium 132 L Potassium 4.8 Chloride 100 Carbon Dioxide 27.0 Anion Gap 5 BUN 38 H Creatinine 0.92 Estim Creat Clear Calc 41.41 Est GFR (MDRD) Af Amer 76 Est GFR (MDRD) Non-Af 63 BUN/Creatinine Ratio 41.5 H Glucose 123 H Calcium 8.8 Total Bilirubin 0.80 Direct Bilirubin 0.29 AST 21 ALT 23 Alkaline Phosphatase 145 H Total Protein 6.8 Albumin 2.4 L Globulin 4.4 H Discharge Plan Triage Chief Complaint: Nausea/Vomiting ED Provider: Kelsie Malone Dx/Rx/DC Orders Clinical Impression: Bowel obstruction, Colonic mass Prescriptions: No Action atorvastatin 40 mg tablet 40 mg PO QHS famotidine 20 mg tablet 20 mg PO DAILY Fleet Enema 19 g enema 133 ml OTHER DAILY PRN (Reason: Constipation) Percocet 5 mg/325 mg tablet 1 tablet PO/SL Q4H PRN PRN (Reason: Pain) Senna Plus 50 mg/8.6 mg tablet 2 tablet PO/SL QHS acetaminophen 325 mg tablet 2 tablet PO/SL 3XD PRN (Reason: Pain) albuterol 90 mcg inhaler 1 puff PO/SL Q4H PRN PRN (Reason: Shortness Of Breath) benztropine 2 mg tablet 1 tablet PO/SL DAILY bisacodyl 10 mg suppository 1 supp OTHER DAILY PRN (Reason: Constipation) budesonide-formoterol 160 mcg inhaler 2 puff PO/SL BID calcium carbonate 600 mg tablet 1 tablet PO/SL BIDCM cholecalciferol (vitamin D3) 50 mcg tablet 2,000 iu PO/SL DAILY denosumab 60 mg pen injector 1 ml OTHER QMONTH Rx Instructions: Administer every 6 months. enoxaparin 40 mg auto-injector 0.4 ml OTHER DAILY ferrous sulfate 325 mg tablet 1 tablet PO/SL QMWF metoprolol succinate 25 mg tablet 0.5 tablet PO/SL DAILY polyethylene glycol 3350 17 g packet 1 packet PO/SL DAILY ziprasidone HCl 40 mg capsule 1 cap PO/SL BREAKFAST ziprasidone HCl 80 mg capsule 1 cap PO/SL DINNER Primary Care Provider: Good Nj Referrals: Good Nj DO [Primary Care Provider] - Disposition Disposition: Acute Care Hospital Discharge Location: [facility]
[2023-01-13 15:12] LABS: Absolute Lymphocyte Count 1.11 X10^3/uL (0.83-4.51); Absolute Neutrophil Count 7.4 X10^3/uL (2.0-7.7); Basophil# 0.07 X10^3/uL; Basophil% 0.7 % (0-1); Eosinophil# 0.04 X10^3/uL; Eosinophils% 0.4 % (0-5); Hematocrit 36.3 % (37-47); Hemoglobin 11.5 g/dL (12.0-15.0); Lymphocyte # 1.11 X10^3/ul (0.83-4.51); Lymphocyte % 10.9 % (19-41); Mean Corp Hgb Conc 31.7 g/dL (32-36); Mean Corpuscular Hgb 27.8 pg (27.0-32.0); Mean Corpuscular Volume 87.9 fL (81-99); Mean Platelet Vol. 8.5 fl (6.2-12.0); Monocyte# 1.48 X10^3/uL; Monocyte% 14.5 % (0-10); NRBC Flagged by Analyzer 0 % (0-5); Neutrophil # 7.44 X10^3/uL (2.7-7.7); Neutrophil % 73.1 % (47-70); Platelet Count 460 K/mm3 (150-450); RBC Distribution Width CV 17.7 % (11.6-14.6); RBC Distribution Width SD 57.3 fl (35.1-43.9); Red Blood Count 4.13 M/mm3 (4.2-5.4); White Blood Count 10.2 K/mm3 (4.4-11.0)
[2023-01-13 15:23] LABS: International Normalized Ratio 1.1
[2023-01-13 15:24] LABS: Partial Thromboplast Time 30.2 Seconds (24.1-36.2)
[2023-01-13 15:29] LABS: AST(SGOT) 21 U/L (15-37); Alanine Aminotransfer ALT/SGPT 23 U/L (13-56); Albumin, Serum 2.4 g/dL (3.2-5.0); Alkaline Phosphatase 145 U/L (45-117); Anion Gap 5 (5-15); BUN 38 mg/dL (7-18); BUN/Creat Ratio 41.5 RATIO (10-20); Bilirubin, Direct 0.29 mg/dL (0.00-0.30); Calcium,Total 8.8 mg/dL (8.5-10.1); Chloride 100 mmol/L (98-107); Creatinine, Serum 0.92 mg/dL (0.55-1.02); EST Glomerular Filtration Rate 63 mL/min (>60); Est Glom Filt Rate - Afr Amer 76 mL/min (>60); Estimated Creatinine Clearance 41.41 ml/min; Globulin 4.4 g/dL (2.2-4.2); Glucose 123 mg/dL (74-106); Potassium 4.8 mmol/L (3.5-5.1); Protein, Total 6.8 g/dL (6.4-8.2); Sodium Level 132 mmol/L (136-145)
[2023-01-13 15:31] VITALS: PULSE 90; RESP 35; O2SAT 97
--- NOTE | 2023-01-13 17:58 | ED.RN ---
Called [place] transfer line for update- no discharges yet, hopefully for today.
[2023-01-13] MEDS: 0.9% Normal Saline 1,000 ML 100 ML IV (18:45)
[2023-01-13 19:12] VITALS: BP 162/56; PULSE 94; RESP 29; O2SAT 95
--- NOTE | 2023-01-13 20:22 | ED.RN ---
Monica with [facility] called, stated pt does have a room, but they are still waiting for discharges to be cleaned. [facility] will call back with room number once the room is officially cleaned, and then transport can be set up.
[2023-01-13] MEDS: fentaNYL 100 MCG/2 ML Ampul 12.5 MCG IV (20:55)
[2023-01-13 21:00] VITALS: BP 118/48; PULSE 90; RESP 30; O2SAT 94
--- NOTE | 2023-01-13 22:40 | ED.RN ---
[facility], bed is ready. pt is going to rm [id number]. squad was called [id number] eta given less than 60.
[2023-01-14] VITALS: BP 146/53; PULSE 91; RESP 28; O2SAT 94
== END 2023-01-14 00:42 | disposition short-term general hospital (02) ==
PROVIDERS: Emergency Provider Emergency Medicine; PCP Student in an Organized Health Care Education/Training Program; Visit Provider Emergency Medicine
DX: K56.609 Unspecified intestinal obstruction, unspecified as to partial versus complete obstruction (principal); F20.9 Schizophrenia, unspecified; J44.9 Chronic obstructive pulmonary disease, unspecified; E78.5 Hyperlipidemia, unspecified; Z79.899 Other long term (current) drug therapy; Z79.51 Long term (current) use of inhaled steroids; M81.0 Age-related osteoporosis without current pathological fracture; Z79.01 Long term (current) use of anticoagulants; K21.9 Gastro-esophageal reflux disease without esophagitis; Z85.3 Personal history of malignant neoplasm of breast; Z90.49 Acquired absence of other specified parts of digestive tract; R10.9 Unspecified abdominal pain; K52.3 Indeterminate colitis
CPT/HCPCS: 74177; 80048; 80076; 85025; 85610; 85730; 96361; 96374; 99285; J7030; Q9967; A4216

== ENCOUNTER → 2023-01-13 | Outpatient (CLI) | payer MEDICARE, OTHER, SELFPAY ==
--- NOTE | 2023-01-13 09:11 | CT_ITS ---
We are attempting to reach an attending provider to discuss findings. An addendum with communication details will be sent when the communication is complete. STUDY: CT Abdomen And Pelvis W/ Contrast Injection 01/13/2023 2:33 PM REASON FOR EXAM: Female, 82 years old. Abdominal pain ABDOMINAL PAIN Individualized dose optimization techniques were used for this CT. COMPARISON: None. TECHNIQUE: CT Abdomen And Pelvis W/ Contrast Injection with Oral Gastrografin and 100mL Isovue-300 FINDINGS: There are atherosclerotic calcifications of visualized coronary arteries. The visualized portions of the heart are within normal limits. There are multiple lesions noted in the liver which are likely related to metastatic disease. Largest lesion in the right lobe of the liver is 30 mm. Largest lesion in the left lobe of the liver is 31 mm. There are surgical clips in the gallbladder fossa consistent with a prior cholecystectomy. Normal spleen. Normal pancreas. Normal bilateral adrenal glands. No acute findings of the right kidney. No acute findings of the left kidney. Normal visualized stomach. There is an enhancing mass terminal ileum measuring 23 x 43 mm. This is causing a small bowel obstruction. There are abnormal enhancing nodules in the lumen of the ascending colon measuring up to 13 mm. There is non-visualization of the appendix. Possible mass in the hepatic flexure colon causing partial large bowel obstruction. There are calcifications of the abdominal aorta. This is consistent for atherosclerotic disease. There is NO abdominal aortic aneurysm. Vascular workup can be obtained based on clinical correlation. Normal inferior vena cava. Subcentimeter mesenteric lymph nodes. Normal urinary bladder. There is atrophy of the uterus. Total right hip arthroplasty. Normal abdominal wall. There are diffuse degenerative changes of the visualized lumbar spine. Healed left inferior pubic fracture. CT/Abdomen/Pelvis WITH Contrast IMPRESSION: (NOT LISTED IN ORDER OF SIGNIFICANCE) 14 mm right lower lobe nodule concerning for metastatic disease. There are multiple lesions noted in the liver which are likely related to metastatic disease. There is a mass in the colon causing colonic obstruction and subsequent small bowel obstruction. Possible mass in the hepatic flexure colon causing partial large bowel obstruction. Other findings as above. Non standard communication findings protocol was initiated. Electronically Signed: Roque Campuzano MD at 14:39 EDT ,
== END | disposition home or self-care (01) ==
PROVIDERS: PCP Student in an Organized Health Care Education/Training Program; Referring Provider Family Medicine Geriatric Medicine; Visit Provider Family Medicine Geriatric Medicine
DX: R10.9 Unspecified abdominal pain (principal)
CPT/HCPCS: 74177; Q9967; A4216